=== PATIENT | male | born 1940 | race Caucasian/White ===

== ENCOUNTER → 2016-12-23 | Outpatient (CLI) | payer BC ==
[~2016-12-23] MED LIST: ASPI81TA28 PO; CALC-354 PO; GLUC1CAP33 PO; NUTR1TAB3 PO
[2016-12-23 17:13] LABS: MANUAL MICROSCOPIC REQUIRED? YES; REVIEW REQ? NO; URINE COLOR ORANGE
[2016-12-23 17:14] LABS: SULFASALICYLIC ACID NEG (NEG); URINE APPEARANCE CLEAR (CLEAR)
[2016-12-23 17:17] LABS: URINE BACTERIA 1+ (NEG); URINE RBC 0-4 /hpf (0-4)
== END | disposition home or self-care (01) ==
LOC: C.LABSPEC 15:33
PROVIDERS: ATTEND Family Medicine
DX: N39.0 Urinary tract infection, site not specified (principal)

== ENCOUNTER → 2017-01-19 | Outpatient (CLI) | payer BC ==
[2017-01-19 09:32] LABS: BASO % 0.4 %; BASO ABS # 0.02 K/uL (0-0.2); COMPLETE YES; EOS % 2.2 %; HEMATOCRIT 37.9 % (42-52); IG% 0.2 %; LYMPH ABS # 0.94 K/uL (1.2-3.4); MEAN CORPUSCULAR HEMOGLOBIN 33.5 pg (25-34); MEAN CORPUSCULAR HGB CONC 33.5 g/dl (32-36); MEAN PLATELET VOLUME 9.5 fL (7.4-10.4); MONO % 8.5 %; NEUT % 69.7 %; PLATELET COUNT 204 K/uL (130-400); RED BLOOD COUNT 3.79 M/uL (4.7-6.1); WHITE BLOOD COUNT 4.96 K/uL (4.8-10.8)
[2017-01-19 09:50] LABS: ALT/SGPT 31 U/L (12-78); BLOOD UREA NITROGEN 25 mg/dl (7-18); CARBON DIOXIDE 26 mmol/L (21-32); CHLORIDE 108 mmol/L (98-107); CHOLESTEROL 190 mg/dl (0-200); GLUCOSE 88 mg/dl (70-99); POTASSIUM 4.2 mmol/L (3.5-5.1); SODIUM 140 mmol/L (136-145)
[2017-01-19 09:55] LABS: CALCIUM 8.9 mg/dl (8.5-10.1)
[2017-01-19 10:03] LABS: ALB/GLOB RATIO 1.1 (0.9-2); ALKALINE PHOSPHATASE 58 U/L (45-117); AST/SGOT 23 U/L (15-37); CHOLESTEROL/HDL RATIO 3.7; CREATININE 0.95 mg/dl (0.60-1.40); HDL CHOLESTEROL 51 mg/dl; LDL CHOLESTEROL CALCULATED 127 mg/dl; PHOSPHORUS 2.6 mg/dl (2.5-4.9); TRIGLYCERIDES 60 mg/dl (0-150); URIC ACID 4.8 mg/dl (2.6-7.2); VERY LOW DENSITY LIPOPROT CALC 12 mg/dl
[2017-01-19 10:18] LABS: ESTIMATED AVERAGE GLUCOSE 114 mg/dl; HA1C FLAG Normal (Normal)
[2017-01-20 09:50] LABS: C-REACTIVE PROT HIGHSEN 0.4 MG/L
[2017-01-22 23:23] LABS: 18KDIGG BAND NONREACTIVE (NONREACTIVE); 23KDIGG BAND NONREACTIVE (NONREACTIVE); 23KDIGM BAND NONREACTIVE (NONREACTIVE); 28KDIGG BAND NONREACTIVE (NONREACTIVE); 30KDIGG BAND NONREACTIVE (NONREACTIVE); 39KDIGG BAND NONREACTIVE (NONREACTIVE); 39KDIGM BAND NONREACTIVE (NONREACTIVE); 41KDIGG BAND REACTIVE (NONREACTIVE); 41KDIGM BAND NONREACTIVE (NONREACTIVE); 45KDIGG BAND NONREACTIVE (NONREACTIVE); 58KDIGG BAND NONREACTIVE (NONREACTIVE); 66KDIGG BAND NONREACTIVE (NONREACTIVE); 93KDIGG BAND NONREACTIVE (NONREACTIVE)
--- NOTE | 2017-01-23 09:52 | CODING QUERY MEDICAL NECESSITY ---
SUPPORTING DIAGNOSIS NEEDED Dr. Fuentes, A supporting diagnosis is required for the test/procedure performed on this patient in order for us to be reimbursed by the patient's insurance. Please provide a supporting diagnosis for the following test/procedure listed below next to the test name along with your signature. *If there is no additional diagnosis for this patient that would support the following test/procedure please document that below next to the test/procedure. Test(s)/Procedure(s) that require a supporting diagnosis: * ([id number]) C-REACTIVE PROTEIN DIAGNOSIS: DATE OF SERVICE: 01/19/17 Provider Signature: Date: Thank you Shon Sauer [facility] Information Management Once completed, please kindly fax back to [phone] For questions please call [phone]
== END | disposition home or self-care (01) ==
LOC: C.LAB 07:26
PROVIDERS: ATTEND Family Medicine
DX: R73.09 Other abnormal glucose (principal); E55.9 Vitamin D deficiency, unspecified; D51.9 Vitamin B12 deficiency anemia, unspecified; R53.83 Other fatigue; C61 Malignant neoplasm of prostate

== ENCOUNTER → 2017-01-22 | Outpatient (CLI) | payer BC ==
[2017-01-22 14:14] LABS: URINE APPEARANCE CLEAR (CLEAR); URINE BILIRUBIN NEG (NEG); URINE COLOR DK YELLOW; URINE NITRITE NEG (NEG); URINE SPECIFIC GRAVITY 1.032 (1.000-1.030); UROBILINOGEN NEG (NEG)
[2017-01-22 14:25] LABS: MANUAL MICROSCOPIC REQUIRED? NO; REVIEW REQ? NO
--- NOTE | 2017-01-27 11:47 | CODING QUERY MEDICAL NECESSITY ---
CQSUPPORTING DIAGNOSIS NEEDED A supporting diagnosis is required for the test/procedure performed on this patient in order for us to be reimbursed by the patient's insurance. Please provide a supporting diagnosis for the following test/procedure listed below next to the test name along with your signature. *If there is no additional diagnosis for this patient that would support the following test/procedure please document that below next to the test/procedure. Test(s)/Procedure(s) that require a supporting diagnosis: DOS 01/22/17 PROSTATE SPECIFIC TEST Provider Signature: Date: Thank you Ceci Vitale [employer] Information Management Once completed, please kindly fax back to [phone] For questions please call [phone]
== END | disposition home or self-care (01) ==
LOC: C.LAB 12:50
PROVIDERS: ATTEND Family Medicine
DX: N39.0 Urinary tract infection, site not specified (principal); C67.9 Malignant neoplasm of bladder, unspecified; C61 Malignant neoplasm of prostate; R97.20 Elevated prostate specific antigen [PSA]; N40.1 Benign prostatic hyperplasia with lower urinary tract symptoms

== ENCOUNTER → 2017-09-04 | Outpatient (CLI) | payer BC ==
[2017-09-04 08:40] VITALS: BP 154/80; PULSE 55; TEMP 36.4; O2SAT 97
--- NOTE | 2017-09-04 11:22 | Radiation Oncology Follow-Up ---
Radiation Oncology Follow-Up Date of Visit Sep 04, 2017. Reason For Visit Annual follow-up Radiation Completion Date seed implant 10-16-2015 and finished IMRT / IGRT 01-21-2016 Diagnosis (1) Prostate cancer Status: Resolved Onset Date: 06/19/2015 Location: both lobes of the prostate Histology Subtype: adenocarcinoma Stage: ll (B) Permanent Comment: DIAGNOSIS: Prostate, adenocarcinoma, donnie 4 + 3, PSA 4.330, cT1c, group IIA Prostate gland size - 28.3 cc Biopsy Date - 06/19/15 Lupron 30 mg IM 10/04/2015 Status post prostate seed implant as a boost 10/16/2015 received 8500 cGy 47 seeds placed Status post completion of radiation therapy utilizing IMRT/IGRT 01/21/2016 received 4500 cGy Last Edited By: Colette Stevens on Aug 14, 2016 16:51 History of Present Illness Mr. Robertson has a history of noninvasive bladder cancer treated with TURBT and BCG therapy who was recently found to have a PSA of 4.330. Dr. Stoll discussion options with the patient the patient elected to have a transrectal ultrasound-guided biopsy which was completed on 2014. The transrectal ultrasound measured the prostate to be 28.3 mL. In total, there were 10/14 cores positive for prostate adenocarcinoma. Donnie 4+3 disease was found in the left base, left mid, right apex and left anterior gland. Additionally there was Donnie 3+4 disease and [place] 3+3 disease. No perineural invasion was identified. The patient did have a bone scan completed on 07/09/2015 which showed areas of increased activity consistent with degenerative disease and additional foci at the level LII and T7 and T8. X-rays of the lumbar and thoracic spines were completed on 07/12/2015 which are negative for metastatic disease. He now seeing the patient in consultation regarding the role of radiation therapy. Options of treatment were reviewed with the patient. Ultimately he made a decision to undergo radiation therapy with a prostate seed implant as boost To be followed by external beam treatment. Patient underwent his prostate seed implant 10/16/2015. Following treatment he was given a Medrol Dosepak and started on Uroxatral. Today he has brought in AUA score sheets. On October 23 his AUA score was 13. On October 29 AUA score of 27. On November 05 AUA score 34. On November 12 AUA score 35 or more. On November 19 AUA score 35 or more. Today he completed expanded prostate cancer index composite for clinical practice and gave a score of 5 of 12 and urinary incontinence symptoms. He gave a score of 9 of 12 urinary irritation symptoms. He gave a score of 9 of 12 bowel symptoms. He gave a score of 8 of 12 sexual symptoms. He gave a score of 6 of 12 and hormonal vitality symptoms. His total was 34 of 60. He was seen by his primary care physician Dr. Fuentes and recommendations were given. He started him on Pyridium which did help with the dysuria. He was also started on hyoscymine. He also started him on a daily dose of prednisone. The patient states he cannot sleep due to the frequency of urination. He feels that he is up to 40-50 times per night. He had been seen at Dr. Mckeon 's office a week after his implant and had a normal postvoid residual. He stated a urine culture was done at Dr. Fuentes's office that was negative. Due to the urinary symptoms he called and asked to be seen. He steadily recuperated from the side effects of the seed implant. He return to our office and underwent a CT simulation and begin external beam therapy. He completed IMRT/IGRT 01/21/2016. He received 4500 cGy. Interim History He has been doing well from urinary standpoint over this past year. He did have one episode in the spring of urinary frequency and voiding small amounts. He saw Dr. Fuentes and had a urinalysis. This did not show infection. He stated that he did take an antibiotic that did not help. Dr. Fuentes then prescribed a tapering dose of prednisone. With this medication the urinary symptoms completely resolved. He has had issues with bright red rectal bleeding. This is intermittent. He was seen by Dr. Walker and had colonoscopy as well as polypectomy. This was on 12/31/2016. He was found to have hemorrhoids. The polyp that was removed was a tubular adenoma. Specimen [id number]. He had issues with leg discomfort and was referred to physical therapy. He has been getting regular treatments and is doing very well in regards to the previous leg discomfort he was having. His last PSA was 01/22/2017 and was 0.075. PSA prior in July 2016 was 0.089. Today he gave an AUA score of 6. He completed and expanded prostate cancer index composite for clinical practice and gave a score of 0 of 12 urinary incontinence symptoms. He gave a score of 2 of 12 and urinary irritation symptoms. He gave a score of one of 12 bowel symptoms. He gave a score of 8 of 12 in sexual symptoms. He gave a score of 0 of 12 in hormonal vitality symptoms. His total was 11 of 60. Allergies Coded Allergies: Fentanyl (Verified Allergy, Severe, DELIRIUM, 12/05/15) Ibuprofen (Verified Allergy, Unknown, RASH, 10/16/15) with prolonged used Nitrofurantoin (Verified Allergy, Unknown, FEVER, 10/16/15) Sulfa Antibiotics (Unverified Allergy, Unknown, fever, 10/16/15) Uncoded Allergies: opiods (Allergy, Unknown, confusion, disoriented, 12/31/15) Home Medications Scheduled Aspirin (Aspirin Ec), 81 MG PO QPM Calcium Carbonate-Cholecalcife (Caltrate 600+D), 1 TAB PO BID Glucosamine-Chondroitin (Glucosamine & Chondroitin 500-400 mg), 1 CAP PO QAM Nutritional Supplements (Bladder 2.2), 1 TAB PO BID Review of Systems Gastrointestinal: Symptoms: Rectal Bleeding GI Comments: "has internal hemorrhoids " Oral: Symptoms: No Problems Respiratory: Symptoms: WNL Other Respiratory: " I am always stuffed up " Urinary: Symptoms: Nocturia Comments: nocturia times 4 , occ urgency Skin: Symptoms: No Problems Physical Exam Vital Signs Date Time Temp Pulse Resp B/P (MAP) Pulse Ox O2 Delivery O2 Flow Rate FiO2 09/04/17 08:40 36.4 55 18 154/80 97 Fatigue: None General Appearance: no apparent distress Eyes: normal inspection, EOMI ENT: normal ENT inspection, hearing grossly normal Respiratory/Chest: lungs clear, no respiratory distress, no accessory muscle use Cardiovascular: regular rate, rhythm, no gallop, no murmur Abdomen: non tender, soft Extremities: no pedal edema Neurologic/Psychiatric: no motor/sensory deficits, alert, normal mood/affect Skin: warm/dry Pain Management Patient Reports Pain: No Side: Bilateral Patient Preferred Pain Scale: 0 - 10 Initial Pain Intensity: 0.0 Pain Management Plan He requires no pain management. Laboratory Laboratory Results: were reviewed Laboratory Comments: Reviewed in the interim history. Pathology Pathology Results: were reviewed Pathology Comments Reviewed in the interim history. Assessment & Plan Plan: PSA was drawn today. He'll be notified as to results. He has continued on tamsulosin once daily on a regular basis. We did discuss weaning off the medication. We discussed the episode of frequency that occurred in the spring. This resolved with prednisone and was likely an inflammatory irritation. He' ll continue regular follow-up with his primary care physician and Dr. Stoll. He was also seen today with Dr. Skelton. We asked him to return to our office in 1 year. He may call if she has any questions or concerns in the interim. Assessment & Plan (Attending) ADDENDUM: I agree with note created by Colette Stevens PA-C. I reviewed the patient's chart and information with her. I have examined and evaluated the patient. I reviewed relevant clinical information and answered the patient's and /or family's questions. [employer]ONMENT[employer]CTION FORESTER Total Time In Follow-Up I spent 25 minutes feeding to the patient and performing examination. I spent 15 minutes reviewing information in completing this note. A Total Time (Attending) In Follow-Up I spent 15 minutes examining and counseling the patient. ENVIRONMENTAL [employer]OTECTION FORESTER Copy To Elvin Stoll M.D.; Tim Fuentes M.D.
== END | disposition home or self-care (01) ==
LOC: C.ONC 08:37
PROVIDERS: ATTEND Physician Assistant Medical
DX: Z08 Encounter for follow-up examination after completed treatment for malignant neoplasm (principal); Z92.3 Personal history of irradiation; Z85.46 Personal history of malignant neoplasm of prostate

== ENCOUNTER → 2018-04-06 | Outpatient (CLI) | payer BC | END | disposition home or self-care (01) | LOC: C.LAB 09:47 | PROVIDERS: ATTEND Urology | DX: C67.9 Malignant neoplasm of bladder, unspecified (principal); N40.1 Benign prostatic hyperplasia with lower urinary tract symptoms; C61 Malignant neoplasm of prostate ==